=== PATIENT | male | born 1945 | race Caucasian/White ===

== ENCOUNTER 2020-03-03 18:35 | Inpatient (IN) | payer MEDICARE ==
[~2020-03-03] VITALS: Ht 167.6 cm; Wt 84.7 kg
[~2020-03-03 18:35] MED LIST: ASPI-886 PO; CLOP75TA PO; CRESTOR40 MG PO; DOCU50LI PO; DONE10TA7 PO; ISOS60TA2 PO; LEVO25TA4 PO; MELA3TAB4 PO; METF100010 PO; METO50TA6 PO; MIDO2.5T PO; MIRA25TA PO; OMEG1CAP6 PO; RANI150T2 PO; RANO10002 PO; SENN-37 PO; SERT100T PO; TAMS0.4C2 PO
[2020-03-03 19:03] LABS: BASO # 0.1 x10^3/uL (0.0-0.2); BASO % 1 % (0-3); EOS # 0.2 x10^3/uL (0.0-0.7); EOS % 2 % (0-3); HEMATOCRIT 37.7 % (39.0-53.0); HEMOGLOBIN 12.8 g/dL (13.0-17.5); LYMPH # 0.7 x10^3/uL (1.0-4.8); LYMPH % 5 % (24-48); MEAN CORPUSCULAR HEMOGLOBIN 32 pg (25-35); MEAN CORPUSCULAR HGB CONC 34 g/dL (31-37); MEAN CORPUSCULAR VOLUME 96 fL (79-100); MONO # 0.8 x10^3/uL (0.0-1.1); MONO % 7 % (0-9); NEUT % 86 % (31-73); PLATELET COUNT 234 x10^3/uL (140-400); RED BLOOD COUNT 3.95 x10^6/uL (4.30-5.70); RED CELL DISTRIBUTION WIDTH 14.2 % (11.5-14.5); WHITE BLOOD COUNT 12.8 x10^3/uL (4.0-11.0)
[2020-03-03 19:12] LABS: CALCIUM 8.7 mg/dL (8.5-10.1); GFR 32.8; POTASSIUM 4.2 mmol/L (3.5-5.1)
[2020-03-03] MEDS ORDERED: ACETAMINOPHEN 500 MG TABLET PO ONE (19:15)
[2020-03-03 19:17] LABS: ALBUMIN 3.3 g/dL (3.4-5.0); ALBUMIN/GLOBULIN RATIO 0.8 (1.0-1.7); TOTAL BILIRUBIN 0.3 mg/dL (0.2-1.0); TOTAL PROTEIN 7.4 g/dL (6.4-8.2)
--- NOTE | 2020-03-03 19:33 | RAD ---
Exam: Chest one view INDICATION: Cough TECHNIQUE: Frontal view of the chest Comparisons: None FINDINGS: Sternotomy wires are noted. Clips are seen overlying the left heart border. The cardiomediastinal silhouette and pulmonary vessels are within normal limits. Mild patchy airspace disease in the right infrahilar region. Remaining lungs are clear. IMPRESSION: Mild patchy airspace disease in the right infrahilar region may relate to atelectasis versus developing infectious process. Electronically signed by: Jose Luis Moody MD (03/03/2020 7:30 PM) [id number]
[2020-03-03 19:55] LABS: INFLUENZA A PATIENT NEGATIVE (NEGATIVE); INFLUENZA B PATIENT NEGATIVE (NEGATIVE)
--- NOTE | 2020-03-03 20:00 | PHYS DOC ---
Past Medical History Past Medical History: Dementia, Diabetes-Type II, GERD, Hypothyroid Additional Past Medical Histor: sepsis, 2020 Past Surgical History: Appendectomy, Hip Replacement Additional Past Surgical Histo: heart cath with 14 stents, "fatty tumor removed on neck" Smoking Status: Never Smoker Alcohol Use: None General Adult EDM: Chief Complaint: CHEST PAIN HPI: HPI: Patient is a 74 year old male presents to the ED with chief complaint of fever and chest pain. Patient states that the pain is been present on and off for the last 2 days but today started at 6 PM. Patient does state that he is a significant cardiac history and has [address] Patient states that his torpedo specialist is Dr. Snider. EMS state that patient was given aspirin and brought to the ER. Currently patient is not on any oxygen and denies shortness of breath. Patient states that he had a COVID test done 3 weeks ago which was negative. Review of Systems: Review of Systems: Constitutional: Complains of fever [] Eyes: Denies change in visual acuity. [] HENT: Denies nasal congestion or sore throat. [] Respiratory: Denies cough or shortness of breath. [] Cardiovascular: Complains of chest pain [] GI: Denies abdominal pain, nausea, vomiting, bloody stools or diarrhea. [] : Denies dysuria. [] Musculoskeletal: Denies back pain or joint pain. [] Integument: Denies rash. [] Neurologic: Denies headache, focal weakness or sensory changes. [] Heart Score: Risk Factors: Risk Factors: DM, Current or recent (<one month) smoker, HTN, HLP, family history of CAD, obesity. Risk Scores: Score 0 - 3: 2.5% MACE over next 6 weeks - Discharge Home Score 4 - 6: 20.3% MACE over next 6 weeks - Admit for Clinical Observation Score 7 - 10: 72.7% MACE over next 6 weeks - Early Invasive Strategies Current Medications: Current Medications Medications (Trade) Dose Ordered Sig/Chaya Start Time Stop Time Status Last Admin Dose Admin Acetaminophen (Tylenol) 1,000 mg 1X ONCE 03/03/20 19:15 03/03/20 19:18 DC 03/03/20 19:22 1,000 MG Allergies: Allergies: Allergies Coded Allergies Type Severity Reaction Last Updated Verified Iodinated Contrast Media Allergy Unknown 06/24/18 Yes niacin Allergy Unknown Unknown 06/24/18 Yes Physical Exam: PE: Constitutional: Well developed, well nourished, no acute distress, non-toxic appearance. [] HENT: Normocephalic, atraumatic Eyes: EOMI Neck: Normal range of motion, Supple Cardiovascular:Heart rate regular rhythm Lungs & Thorax: Bilateral rhonchi [] Abdomen: Bowel sounds normal, soft, no tenderness Extremities: No tenderness, ROM intact Neurologic: Alert and oriented X 3 Current Patient Data: Labs: Laboratory Tests Test 03/03/20 18:53 03/03/20 19:25 White Blood Count 12.8 x10^3/uL (4.0-11.0) H Red Blood Count 3.95 x10^6/uL (4.30-5.70) L Hemoglobin 12.8 g/dL (13.0-17.5) L Hematocrit 37.7 % (39.0-53.0) L Mean Corpuscular Volume 96 fL (79-100) Mean Corpuscular Hemoglobin 32 pg (25-35) Mean Corpuscular Hemoglobin Concent 34 g/dL (31-37) Red Cell Distribution Width 14.2 % (11.5-14.5) Platelet Count 234 x10^3/uL (140-400) Neutrophils (%) (Auto) 86 % (31-73) H Lymphocytes (%) (Auto) 5 % (24-48) L Monocytes (%) (Auto) 7 % (0-9) Eosinophils (%) (Auto) 2 % (0-3) Basophils (%) (Auto) 1 % (0-3) Neutrophils # (Auto) 11.0 x10^3/uL (1.8-7.7) H Lymphocytes # (Auto) 0.7 x10^3/uL (1.0-4.8) L Monocytes # (Auto) 0.8 x10^3/uL (0.0-1.1) Eosinophils # (Auto) 0.2 x10^3/uL (0.0-0.7) Basophils # (Auto) 0.1 x10^3/uL (0.0-0.2) Platelet Estimate Pending Sodium Level 138 mmol/L (136-145) Potassium Level 4.2 mmol/L (3.5-5.1) Chloride Level 103 mmol/L (98-107) Carbon Dioxide Level 27 mmol/L (21-32) Anion Gap 8 (6-14) Blood Urea Nitrogen 24 mg/dL (8-26) Creatinine 2.0 mg/dL (0.7-1.3) H Estimated GFR (Cockcroft-Gault) 32.8 BUN/Creatinine Ratio 12 (6-20) Glucose Level 137 mg/dL (70-99) H Lactic Acid Level 1.0 mmol/L (0.4-2.0) Calcium Level 8.7 mg/dL (8.5-10.1) Total Bilirubin 0.3 mg/dL (0.2-1.0) Aspartate Amino Transferase (AST) 22 U/L (15-37) Alanine Aminotransferase (ALT) 33 U/L (16-63) Alkaline Phosphatase 85 U/L (46-116) Troponin I Quantitative < 0.017 ng/mL (0.000-0.055) UN-Yjm-G-Type Natriuretic Peptide 627 pg/mL (0-124) H Total Protein 7.4 g/dL (6.4-8.2) Albumin 3.3 g/dL (3.4-5.0) L Albumin/Globulin Ratio 0.8 (1.0-1.7) L Procalcitonin < 0.10 ng/mL (0.00-0.10) Influenza Type A Antigen Negative (NEGATIVE) Influenza Type B Antigen Negative (NEGATIVE) Laboratory Tests 03/03/20 18:53 Laboratory Tests 03/03/20 18:53 Vital Signs: Vital Signs Date Time Temp Pulse Resp B/P (MAP) Pulse Ox O2 Delivery O2 Flow Rate FiO2 03/03/20 18:45 100.0 102 24 136/73 (94) 98 Room Air 100.0 EKG: EKG: EKG interpretation: 18: 45 on 03/03/2020 HR: 97 Sinus rhythm Regular intervals Normal axis Nonspecific ST changes Radiology/Procedures: Radiology/Procedures: [] Impression: CXR IMPRESSION: Mild patchy airspace disease in the right infrahilar region may relate to atelectasis versus developing infectious process. Course & Med Decision Making: Course & Med Decision Making Pertinent Labs and Imaging studies reviewed. (See chart for details) Order chest x-ray, EKG, troponin, labs Chest x-ray shows possible perihilar infiltrate in the right lower lobe. EKG does not show any acute changes. Troponin is negative. Labs are within normal limits. Patient is given IV Rocephin and Zithromax in the ER. Patient is also given Tylenol 1000 mg. Patient is currently on room air and has good oxygenation. Due to patient's cardiac history and fever, I will order COVID testing again. Discussed results and plan of care with patient. Patient will be admitted for further evaluation and treatment. I discussed case with Dr. Devine who accepted patient's admission. Dragon Disclaimer: Dragon Disclaimer: This electronic medical record was generated, in whole or in part, using a voice recognition dictation system. Departure Departure Impression: Primary Impression: Chest pain Additional Impressions: Pneumonia Exposure to COVID-19 virus Disposition: ADMITTED INPATIENT Admitting Physician: Madi. Magallanes Condition: GOOD Referrals: CARY DEVINE MD (PCP) Justicifation of Admission Dx: Justifications for Admission: Justification of Admission Dx: Yes Comments: Chest pain Pneumonia IRVIN DOYLE DO Mar 03, 2020 20:00
[2020-03-03 20:01] LABS: % BANDS 12 % (0-9); % EOS 1 % (0-5); % LYMPHS 5 % (24-48); % MONOS 4 % (0-10); % SEGS 78 % (35-66)
[2020-03-03 20:02] LABS: PLT ESTIMATE ADEQUATE (ADEQUATE)
[2020-03-03] MEDS ORDERED: cefTRIAXone IV Push 1 GM VIAL. IVP ONE (20:30)
[2020-03-03] MEDS ORDERED: AZITHROMYCIN 250 MG TABLET. PO ONE (20:30)
[2020-03-03 21:30] VITALS: BP 132/67
--- NOTE | 2020-03-03 21:30 | NUR ---
ADMISSION NOTE Pt admitted to room 672 from ER via cart. Pt ambulated with assist to bed. Pt is pleasant, A/Ox4, but forgetful with details. POC discussed, admission history and assessment completed. Pt states some feeling of SOA, but no chest pain at this time. Does c/o headache and right jaw ache. Pt on tele monitor. Pt cell phone, director of enterprise architecture and glasses at bedside. Pt denies any needs. Pts daughter, Rita, called regarding pt status. Update given over the phone with pt permission. Call light in reach and explained to pt. Pt vu to call when need OOB. Bed alarm on. Will monitor.
[2020-03-03] MEDS ORDERED: INSU100I17 SQ (21:53)
[2020-03-03] MEDS ORDERED: LEVO75TA5 PO (21:53)
[2020-03-03] MEDS ORDERED: INSU100V13 SQ (21:53)
[2020-03-03] MEDS ORDERED: FAMO20TA5 PO (21:53)
[2020-03-03] MEDS ORDERED: MIRA50TA PO (21:53)
[2020-03-03] MEDS: INSULIN GLARGINE SYRINGE. SQ SCH (22:45)
[2020-03-03] MEDS ORDERED: C.DIFF MED SCREEN BY RX. MC ONE (22:45)
[2020-03-03 23:00] VITALS: BP 128/64
[2020-03-03] MEDS: ACETAMINOPHEN 325 MG TABLET. PO PRN (23:11)
[2020-03-04 03:00] VITALS: BP 113/55
--- NOTE | 2020-03-04 04:15 | NUR ---
NURSING NOTE At 0230, pt called out, he had large loose, liquid incontinent BM in bed. When previously asked on assessment, pt stated last BM was 2 days ago. Now pt states he has diarrhea intermittently at home. At 0300, pt assisted to the bathroom, where he had another liquid BM. Then at 414, pt called to use bathroom again, pt had another large incontinent BM in brief, and more in the toilet. Cdiff sample obtained and sent to lab. Pt assisted back to bed. Call light in reach. Will monitor.
[2020-03-04 07:00] VITALS: BP 105/68
[2020-03-04 07:15] LABS: BASO % 0 % (0-3); EOS % 0 % (0-3); HEMATOCRIT 39.6 % (39.0-53.0); HEMOGLOBIN 13.2 g/dL (13.0-17.5); LYMPH % 7 % (24-48); MEAN CORPUSCULAR HEMOGLOBIN 32 pg (25-35); MEAN CORPUSCULAR HGB CONC 33 g/dL (31-37); MEAN CORPUSCULAR VOLUME 95 fL (79-100); MONO % 7 % (0-9); NEUT # 12.8 x10^3/uL (1.8-7.7); NEUT % 86 % (31-73); PLATELET COUNT 226 x10^3/uL (140-400); RED BLOOD COUNT 4.16 x10^6/uL (4.30-5.70); RED CELL DISTRIBUTION WIDTH 14.1 % (11.5-14.5); WHITE BLOOD COUNT 14.8 x10^3/uL (4.0-11.0)
[2020-03-04 07:28] LABS: ALBUMIN 3.1 g/dL (3.4-5.0); ALBUMIN/GLOBULIN RATIO 0.9 (1.0-1.7); CALCIUM 8.3 mg/dL (8.5-10.1); CHOLESTEROL/HDL RATIO 2.2; CREATININE 1.9 mg/dL (0.7-1.3); GFR 34.8; POTASSIUM 4.2 mmol/L (3.5-5.1); TOTAL BILIRUBIN 0.5 mg/dL (0.2-1.0); TOTAL PROTEIN 6.7 g/dL (6.4-8.2)
[2020-03-04] MEDS ORDERED: FAMOTIDINE 20 MG TABLET. PO SCH (10:00)
[2020-03-04] MEDS: DONEPEZIL HCL 10 MG TABLET. PO SCH (10:00)
--- NOTE | 2020-03-04 10:08 | HP ---
ADMIT DATE: HISTORY OF PRESENT ILLNESS: The patient is a 74-year-old male patient who presented to the Emergency Room with chief complaint of fever and chest pain. He stated the pain has been on and off for the last 2 days; however, the day of admission, started around 6:00 p.m. He does have significant cardiac history or DVT. He stated that he describes the pain as discomfort. He was given aspirin by the EMS and was brought to the Emergency Room for further evaluation. The patient stated that he was admitted to the [facility] about 3 weeks ago, was tested for coronavirus 3 times were negative. He was treated for sepsis and he finished antibiotic only 2 days ago. He was extensively evaluated in the Emergency Room and has had an EKG, which showed that he was in sinus rhythm with a heart rate of [address] segment elevation or depression. His chest x-ray showed mild patchy airspace disease in the right infrahilar region, may relate to atelectasis versus developing infectious process. His lab work showed a white cell count 12,800, hemoglobin 13, hematocrit 37, MCV was 96, and platelet count of 234,000. His chemistry showed that his BUN was 24 and creatinine was 2. The patient was admitted to rule out myocardial infarction. He was also started on ceftriaxone and Zithromax for possible community-acquired pneumonia. PAST MEDICAL HISTORY: Significant for coronary artery disease, congestive heart failure, hypertension, myocardial infarction, hyperlipidemia, obstructive sleep apnea, cerebrovascular accident, peripheral neuropathy, dementia, gastroesophageal reflux disease, depression, osteoarthritis, benign prostatic hypertrophy and urinary incontinence. He is also known to have type 2 diabetes mellitus and hypothyroidism. PAST SURGICAL HISTORY: Significant for appendectomy, coronary artery bypass graft surgery and right total hip arthroplasty as well as multiple stent deployment. FAMILY HISTORY: Positive for coronary artery disease. SOCIAL HISTORY: He lives alone with his cat. He has a son and a daughter. His daughter is his DPOA and she keeps an eye on him. He does not smoke, drink alcohol or use any recreational drugs. REVIEW OF SYSTEMS: The patient denied any blurring of vision, cataract, glaucoma or macular degeneration. Denied any earache, tinnitus or sensorineural deafness. Denied any nosebleeds, stuffy nose or postnasal drip. Denied any sore throat, sore tongue, toothache, hoarseness of voice or difficulty swallowing. He denied any nausea, vomiting, diarrhea or constipation. Denied any hematemesis, melena or hematochezia. Denied any dysuria, frequency or hematuria. Did complain of chest discomfort and shortness of breath, but denied any orthopnea or paroxysmal nocturnal dyspnea. Did complain of fever and shaking chills. Also complained of cough with whitish to yellowish sputum. PHYSICAL EXAMINATION: GENERAL: On arrival to the Emergency Room, he was pale but no jaundice or cyanosis. No lymphadenopathy. No thyromegaly. No jugular venous distention. Mild bilateral limb edema. VITAL SIGNS: His heart rate was 102, blood pressure was 136/73, temperature was 100, respiratory rate was 24 and oxygen saturation was 98% on room air. HEAD, EYES, EARS, NOSE AND THROAT: Showed normocephalic, atraumatic. NECK: Supple. CARDIAC: Normal first and second heart sounds. No gallop, rub or murmur. CHEST: Shows central trachea, equal bilateral expansion, air entry, vesicular sounds. I could not really appreciate any crepitation or rhonchi. ABDOMEN: Distended, soft, nontender. NEUROLOGIC: He was awake and alert, responding appropriately. All cranial nerves intact. EXTREMITIES: He moves extremities without difficulty, ambulates without assistance or assistive devices. LABORATORY DATA: His CBC showed a white cell count 12,800, hemoglobin 12.8, hematocrit 38, MCV 96 and platelet count 234,000 with normal manual differential. His chemistry showed that his serum sodium was 138, potassium 4.2, chloride 103, bicarbonate 27, anion gap of 8, BUN 24, creatinine 2 and estimated GFR was 32 mL per minute. His glucose was 137. Lactic acid is only 1. Calcium was 8.7. Total bilirubin, AST, ALT and alkaline phosphatase were normal. Total protein was 7.4. Albumin was 3.3. His procalcitonin was less than 1. His influenza A and B were negative. ASSESSMENT AND PLAN: The patient was admitted with community-acquired pneumonia and was started on Rocephin and Zithromax. He has also chest pain for which he has had a first set of cardiac enzymes showed troponin to be less than 0.017. We will basically check his COVID-19 and also check 2 more sets of cardiac enzyme and reconciled all his other medications. CARY CHIN MD DR: CHRIS/francois JOB#: [id number] / [id number]
[2020-03-04] MEDS: VANCOMYCIN 125 MG/2.5 ML ORAL SOLUTION. PO SCH ×4 (10:13→21:36)
[2020-03-04] MEDS: LACTOBACILLUS RHAMNOSUS GG 1 CAPSULE. PO SCH ×2 (10:13→21:21)
[2020-03-04] MEDS: MIDODRINE 2.5 MG TABLET PO SCH ×2 (10:13→21:22)
[2020-03-04] MEDS: SERTRALINE 50 MG TABLET. PO SCH (10:13)
[2020-03-04] MEDS: METOPROLOL TART IMMED RELEASE 25 MG TABLET. PO SCH ×2 (10:14→21:21)
[2020-03-04] MEDS: IV NORMAL SALINE 1000ML BAG 1,000 ML IV SCH ×2 (10:15→23:12)
[2020-03-04] MEDS: LEVOTHYROXINE 75 MCG TABLET PO SCH (10:15)
[2020-03-04 11:00] VITALS: BP 111/42
--- NOTE | 2020-03-04 11:17 | NUR ---
Pharmacy Medication Review S: Consulted for medication review re: C.diff Risk Assessment score of 6 O: ABNER VERAS is a 74 year old with: Previous C.diff infection: No Previous hospitalization: Within 30 days Recent antibiotics: Within 30 days Use of gastric acid suppressor: Yes Transfer from [place]/LTAC: No Current antibiotic regimen: AZITH/CEFTRIAXONE Current acid suppression regimen: FAMOTIDINE A: Patient has been identified as having risk factors for C.diff infection as noted above. P: ABX DE-ESCALATION RECOMMENDED: NO, PT HAS CAP PROBIOTIC ORDERED: YES PPI CHANGED TO [id number]: PT ON H2RA KENDALL PAPPAS [facility], 03/04/20 [id number]
[2020-03-04] MEDS: INSULIN LISPRO 300 UNITS/3 ML VIAL. SQ SCH ×2 (12:22→17:00)
--- NOTE | 2020-03-04 13:48 | PN ---
DATE: 03/04/2020 SUBJECTIVE: The patient is sitting at the edge of the bed comfortably, in no apparent distress. He continues to complain of cough with yellowish to whitish sputum. He continued to have also fever and had about 6 episodes of loose bowel movement this morning. His blood pressure is also on the low side. PHYSICAL EXAMINATION: GENERAL: When I examined him, he looked pale. No jaundice or cyanosis. No lymphadenopathy. No thyromegaly. No jugular venous distention. Mild bilateral lower limb edema. VITAL SIGNS: His heart rate was 108, blood pressure was 113/55, temperature was 100.1, respiratory rate was 28 and oxygen saturation was 96%. HEAD, EYES, EARS, NOSE and THROAT: Showed normocephalic, atraumatic. NECK: Supple. HEART: Showed normal first and second heart sounds. No gallop, rub or murmur. CHEST: Clear to auscultation. No crepitation or rhonchi. ABDOMEN: Distended, soft, nontender. NEUROLOGIC: He was awake, alert, responding appropriately. LABORATORY DATA: Showed a serum sodium 137, potassium 4.2, chloride 103, bicarbonate 25, anion gap of 9, BUN 23, creatinine was 1.9. His estimated GFR was 55 and glucose was 196. Calcium was 8.3. Total bilirubin, AST, ALT, alkaline phosphatase were normal. Total protein was 6.7, albumin 3.1. Serum triglycerides 167, total cholesterol 89, LDL cholesterol was 15, VLDL was 55, HDL cholesterol was 41, ratio 2.2. Has 3 sets of cardiac enzymes, which showed troponin to be less than 0.017. ASSESSMENT: In summary, this is a 74-year-old male patient who was admitted with fever, chills. He has had cough with whitish to yellowish sputum. His chest x-ray showed that he has sternotomy wires that are noted. Clips are seen overlying the left heart border. Cardiomediastinal silhouette and pulmonary vessels are within normal limits. Mild patchy airspace disease in the right infrahilar region. Remaining lungs are clear. He was admitted with chest discomfort. He has 3 sets of cardiac enzymes that ruled out myocardial infarction. He has also community acquired pneumonia, for which he is now on IV Rocephin and Zithromax. He apparently was at [facility] for sepsis and treated with IV antibiotic and eventually switched to oral and completed his antibiotics only 2 days ago. He is now having recurrent episodes of loose bowel movement. He has had 6 bowel movements so far. The stool was sent for C. diff. PLAN: My plan is to start him on IV fluid for gentle rehydration as he is feeling dizzy. I will start him on normal saline at 75 mL per hour. His stool for C. diff was sent and I will start him empirically on oral vancomycin and obviously will continue with that if the C. diff is positive. CARY CHIN MD DR: CHRIS/francois JOB#: [id number] / [id number]
[2020-03-04 15:00] VITALS: BP 113/59
[2020-03-04] MEDS: ACETAMINOPHEN 325 MG TABLET. PO PRN (16:10)
[2020-03-04 20:02] VITALS: BP 111/58
[2020-03-04] MEDS ORDERED: INSULIN DETEMIR 15 UNIT SQ SCH (21:00)
[2020-03-04] MEDS ORDERED: cefTRIAXone IV Push 1 GM VIAL. IVP SCH (21:00)
[2020-03-04] MEDS ORDERED: AZITHROMYCIN 500 MG in IV NORMAL SALINE 250ML 250 ML IV SCH (21:00)
[2020-03-04] MEDS: TAMSULOSIN 0.4 MG CAP.ER.24H. PO SCH (21:22)
[2020-03-04] MEDS: ATORVASTATIN CALCIUM 40 MG TABLET. PO SCH (21:22)
[2020-03-04] MEDS: INSULIN GLARGINE SYRINGE. SQ SCH (21:38)
[2020-03-04 23:09] VITALS: BP 103/54
[2020-03-05 04:00] VITALS: BP 98/56
[2020-03-05 05:39] LABS: HEMATOCRIT 33.5 % (39.0-53.0); HEMOGLOBIN 11.4 g/dL (13.0-17.5); RED BLOOD COUNT 3.49 x10^6/uL (4.30-5.70); RED CELL DISTRIBUTION WIDTH 14.4 % (11.5-14.5); WHITE BLOOD COUNT 9.5 x10^3/uL (4.0-11.0)
[2020-03-05 05:48] LABS: ALBUMIN 2.5 g/dL (3.4-5.0); ALBUMIN/GLOBULIN RATIO 0.7 (1.0-1.7); CALCIUM 8.2 mg/dL (8.5-10.1); CREATININE 1.8 mg/dL (0.7-1.3); GFR 37.1; POTASSIUM 3.6 mmol/L (3.5-5.1); TOTAL BILIRUBIN 0.3 mg/dL (0.2-1.0); TOTAL PROTEIN 6.3 g/dL (6.4-8.2)
[2020-03-05 07:30] VITALS: BP 106/55
[2020-03-05] MEDS: MIDODRINE 2.5 MG TABLET PO SCH ×2 (08:23→22:17)
[2020-03-05] MEDS: LEVOTHYROXINE 75 MCG TABLET PO SCH (08:23)
[2020-03-05] MEDS: DONEPEZIL HCL 10 MG TABLET. PO SCH (08:23)
[2020-03-05] MEDS: SERTRALINE 50 MG TABLET. PO SCH (08:23)
[2020-03-05] MEDS: LACTOBACILLUS RHAMNOSUS GG 1 CAPSULE. PO SCH ×2 (08:23→22:17)
[2020-03-05] MEDS: FAMOTIDINE 20 MG TABLET. PO SCH (08:23)
[2020-03-05] MEDS: NON FORMULARY ITEM (Mirabegron (Myrbetriq) 50 MG) PO SCH (08:24)
[2020-03-05] MEDS: METOPROLOL TART IMMED RELEASE 25 MG TABLET. PO SCH ×2 (08:24→22:17)
[2020-03-05] MEDS: VANCOMYCIN 125 MG/2.5 ML ORAL SOLUTION. PO SCH ×4 (08:24→21:00)
[2020-03-05] MEDS: INSULIN LISPRO 300 UNITS/3 ML VIAL. SQ SCH ×3 (08:27→17:00)
--- NOTE | 2020-03-05 09:53 | PN ---
DATE: 03/05/2020 SUBJECTIVE: The patient is resting, slightly propped up in bed, in no apparent respiratory distress. He is awake, alert. On questioning him, he continued to have abdominal discomfort and recurrent bouts of diarrhea. He has about 4 last night and 2 this morning. He did complain of chest discomfort when he coughs. His stool for C. diff toxins was positive. The COVID-19 test is still pending at the time of this dictation. PHYSICAL EXAMINATION: GENERAL: When I saw him, he looked well and was clearly in no apparent respiratory distress. No pallor, jaundice, cyanosis or thyromegaly. No jugular venous distention. No lower limb edema. VITAL SIGNS: His heart rate was 74, blood pressure was 106/55, temperature 97.3, respiratory rate was 16, and oxygen saturation was 98% on room air. HEAD, EYES, EARS, NOSE AND THROAT: Showed he is normocephalic, atraumatic. NECK: Supple. CARDIAC: Normal first and second heart sounds. No gallop, rub or murmur. CHEST: Shows central trachea, equal bilateral expansion, air entry. I really could not appreciate any crepitation or rhonchi. ABDOMEN: Distended, diffusely tender. No guarding or rigidity. No organomegaly. All hernial orifices intact. Bowel sounds normal. NEUROLOGIC: He is awake, alert, responding appropriately. All cranial nerves are intact. He moves extremities without difficulty. His intake and output were incompletely recorded. LABORATORY DATA: His lab work this morning showed a white cell count 9500, hemoglobin 11.4, hematocrit 33, MCV 96, and platelet count of 172,000. His chemistry showed a serum sodium 140, potassium 3.6, chloride 107, bicarbonate 24, anion gap of 9, BUN 25, creatinine 1.8, estimated GFR was 37. Blood sugar was 135, calcium was 8.2. Total bilirubin, AST, ALT, alkaline phosphatase were normal. Total protein 6.3, albumin 2.5. ASSESSMENT: 1. Recurrent bouts of diarrhea with stool positive for Clostridium difficile colitis for which he is now on oral vancomycin as well as lactobacillus rhamnosus. 2. Community-acquired pneumonia for which he is on Rocephin and Zithromax. 3. The patient was apparently admitted with sepsis and was at the [facility] and completed antibiotic only 2 days prior to admission. 4. The patient has multiple other medical problems including: A. Coronary artery disease, status post bypass graft surgery. He has congestive heart failure, hypertension, hyperlipidemia, obstructive sleep apnea, benign prostatic hypertrophy, hypothyroidism, type 2 diabetes. PLAN: To continue with current plan of management. I will consult Infectious Disease to see whether to assist with his management. CARY CHIN MD DR: CHRIS/francois JOB#: [id number] / [id number]
[2020-03-05 11:20] VITALS: BP 122/61
[2020-03-05] MEDS: IV NORMAL SALINE 1000ML BAG 1,000 ML IV SCH (12:00)
--- NOTE | 2020-03-05 13:17 | PDOC ---
Infectious Disease Note Vital Sign Vital Signs Vital Signs Date Time Temp Pulse Resp B/P (MAP) Pulse Ox O2 Delivery O2 Flow Rate FiO2 03/05/20 11:20 97.0 74 16 122/61 (81) 98 Room Air 97.0 Labs Lab Laboratory Tests Test 03/04/20 17:15 03/04/20 21:45 03/05/20 05:00 03/05/20 07:43 Glucose (Fingerstick) 106 mg/dL (70-99) 155 mg/dL (70-99) 148 mg/dL (70-99) White Blood Count 9.5 x10^3/uL (4.0-11.0) Red Blood Count 3.49 x10^6/uL (4.30-5.70) Hemoglobin 11.4 g/dL (13.0-17.5) Hematocrit 33.5 % (39.0-53.0) Mean Corpuscular Volume 96 fL (79-100) Mean Corpuscular Hemoglobin 33 pg (25-35) Mean Corpuscular Hemoglobin Concent 34 g/dL (31-37) Red Cell Distribution Width 14.4 % (11.5-14.5) Platelet Count 172 x10^3/uL (140-400) Sodium Level 140 mmol/L (136-145) Potassium Level 3.6 mmol/L (3.5-5.1) Chloride Level 107 mmol/L (98-107) Carbon Dioxide Level 24 mmol/L (21-32) Anion Gap 9 (6-14) Blood Urea Nitrogen 25 mg/dL (8-26) Creatinine 1.8 mg/dL (0.7-1.3) Estimated GFR (Cockcroft-Gault) 37.1 BUN/Creatinine Ratio 14 (6-20) Glucose Level 135 mg/dL (70-99) Calcium Level 8.2 mg/dL (8.5-10.1) Total Bilirubin 0.3 mg/dL (0.2-1.0) Aspartate Amino Transf (AST/SGOT) 19 U/L (15-37) Alanine Aminotransferase (ALT/SGPT) 15 U/L (16-63) Alkaline Phosphatase 60 U/L (46-116) Total Protein 6.3 g/dL (6.4-8.2) Albumin 2.5 g/dL (3.4-5.0) Albumin/Globulin Ratio 0.7 (1.0-1.7) Test 03/05/20 11:21 Glucose (Fingerstick) 135 mg/dL (70-99) Micro Microbiology 03/03/20 Blood Culture - Preliminary, Resulted NO GROWTH AFTER 1 DAY Objective Assessment C. difficile colitis, 03/04 Mild patchy airspace disease in the right infrahilar region, atelectasis versus developing infectious process. Fever - better Leukocytosis CAD Recent h/o UTI-Tx [id number] Cat scratch -abdomen area HTN Benign prostatic hypertrophy T2DM Plan Plan of Care continue po vancomycin d/c Rocephin and azithromycin Repeat chest x-ray in am. Maintain hydration f/u UA and cultures Monitor labs/temp Contact isolation for C. diff. Airborne isolation till COVID-19 ruled out D/w Dr. Mcguire D/w nursing Thank you [id number] Patient discussed with BINDING MACHINE OPERATOR. Chart reviewed in detail. Above plan co-formulated and agreed upon with BINDING MACHINE OPERATOR on 03/05/2020. BOYD GARRETT APRN Mar 05, 2020 13:17 KENZIE MCGUIRE MD Mar 05, 2020 20:02
[2020-03-05 14:10] VITALS: BP 115/74
--- NOTE | 2020-03-05 18:13 | CONS ---
DATE OF CONSULTATION: 03/05/2020 REFERRING PHYSICIAN: Dr. Devine. REASON FOR CONSULTATION: Clostridium difficile colitis and questionable community-acquired pneumonia. HISTORY OF PRESENT ILLNESS: This patient is a 74-year-old male with a past medical history of coronary artery disease, who presented with a 2-day history of chest pain and fever with leukocytosis. He tested negative for influenza. COVID-19 pending. A chest x-ray showed mild patchy airspace disease in the right infrahilar region may relate to atelectasis versus developing infectious process. He was started on Rocephin and azithromycin. The patient says his chest feels more sore than anything. He has a cough with white phlegm production. He denies shortness of air and is satting 99% on room air. Since admission, he has developed diarrhea, mild abdominal cramps and bloating. He has had 15 stools within the last 24 hours. He tested positive for Clostridium difficile. He is now on oral vancomycin and placed in contact isolation. He denies loss of appetite, nausea, or vomiting. He was recently admitted to the [facility] a couple of weeks ago for sepsis and recurrent urinary tract infection. He finished antibiotics 2 days prior to this admission. He lives at home with a therapy cat. About a week ago, the cat scratched him in the abdomen. He denies dysuria, frequency, or urgency. PAST MEDICAL HISTORY: Coronary artery disease, history of CVA, dementia, myocardial infarction, congestive heart failure, cardiomyopathy, hyperlipidemia, GERD, recurrent urinary tract infections, benign prostate hypertrophy, diabetes, depression, anemia, osteoarthritis, peripheral neuropathy, hypothyroidism, and obstructive sleep apnea. PAST SURGICAL HISTORY: Coronary artery bypass graft, right hip replacement, appendectomy, coronary stents, cataract surgery. FAMILY HISTORY: Positive for coronary artery disease. SOCIAL HISTORY: The patient lives at home. He has a therapy cat. He has a son and daughter. He does not smoke. He is a [place] . ALLERGIES: CONTRAST DYE AND NIACIN. MEDICATIONS: Reviewed on the OCT and includes azithromycin, Rocephin, probiotics, oral vancomycin. REVIEW OF SYSTEMS: Per HPI, otherwise all other review of systems are negative. PHYSICAL EXAMINATION: VITAL SIGNS: Temperature 97.0, blood pressure 122/61, heart rate 74, respiratory rate 16, pulse oximetry 98% on room air. BMI 29. GENERAL: The patient is propped up in bed, alert and smiling. HEENT: Post-cataract surgery. Oropharynx pink and moist. No thrush. NECK: Supple. LUNGS: Clear to auscultation No accessory muscle use. CARDIAC: S1 and S2. ABDOMEN: Mildly distended, soft, nontender, bowel sounds present No guarding. EXTREMITIES: No gross edema or cyanosis. SKIN: Warm to touch. No signs of rash. NEUROLOGIC: Alert and oriented, but a little forgetful. LABORATORY DATA: Today's WBC 9.5 from 14.8, hemoglobin 11.4, platelets 172,000. Sodium 140, potassium 3.6, creatinine 1.8 from 2.0 on admission. Glucose 135. Lactic acid 1.0, total bilirubin 0.3, AST 19, ALT 15, albumin is 2.5. Procalcitonin less than 0.10. Clostridium difficile PCR positive on 03/04/2020. Influenza negative. COVID-19 pending. Chest x-ray per HPI. Blood cultures from 03/03/2020 negative to date. Urinalysis is pending. IMPRESSION: 1. Clostridium difficile colitis from 03/04/2020. 2. Mild patchy airspace disease in the right infrahilar region, atelectasis versus developing infectious process. 3. Fever. 4. Leukocytosis. 5. Coronary artery disease. 6. Recent history of urinary tract infection, which apparently has been treated. 7. Cat scratch on abdominal area. 8. Hypertension. 9. Benign prostate hypertrophy. 10. Type 2 diabetes mellitus. PLAN: 1. Continue the oral vancomycin. 2. Maintain hydration. 3. Contact isolation for Clostridium difficile. 4. Discontinue the Rocephin and azithromycin. 5. Repeat chest x-ray in the morning. 6. Airborne precautions until COVID-19 ruled out. 7. Discussed with nursing. Thank you, Dr. Devine for asking us to participate in this patient's care. Should you have further questions or concerns, please call. KENZIE RUIZ MD DR: RATNA/francois JOB#: [id number] / [id number]
[2020-03-05 19:10] VITALS: BP 126/57
[2020-03-05] MEDS: ATORVASTATIN CALCIUM 40 MG TABLET. PO SCH (21:00)
[2020-03-05] MEDS: TAMSULOSIN 0.4 MG CAP.ER.24H. PO SCH (22:17)
[2020-03-05] MEDS: INSULIN GLARGINE SYRINGE. SQ SCH (22:19)
[2020-03-06] VITALS (7 sets, daily range): BP systolic 120–165; BP diastolic 58–79
[2020-03-06] MEDS: IV NORMAL SALINE 1000ML BAG 1,000 ML IV SCH ×2 (01:45→15:05)
[2020-03-06] MEDS: VANCOMYCIN 125 MG/2.5 ML ORAL SOLUTION. PO SCH ×4 (08:53→20:48)
[2020-03-06] MEDS: INSULIN LISPRO 300 UNITS/3 ML VIAL. SQ SCH ×3 (08:57→17:15)
[2020-03-06] MEDS: FAMOTIDINE 20 MG TABLET. PO SCH (08:57)
[2020-03-06] MEDS: DONEPEZIL HCL 10 MG TABLET. PO SCH (08:58)
[2020-03-06] MEDS: LACTOBACILLUS RHAMNOSUS GG 1 CAPSULE. PO SCH ×2 (08:58→20:48)
[2020-03-06] MEDS: METOPROLOL TART IMMED RELEASE 25 MG TABLET. PO SCH ×2 (08:58→20:48)
[2020-03-06] MEDS: SERTRALINE 50 MG TABLET. PO SCH (08:58)
[2020-03-06] MEDS: LEVOTHYROXINE 75 MCG TABLET PO SCH (08:59)
[2020-03-06] MEDS: NON FORMULARY ITEM (Mirabegron (Myrbetriq) 50 MG) PO SCH (09:00)
[2020-03-06] MEDS: MIDODRINE 2.5 MG TABLET PO SCH ×2 (09:00→20:48)
--- NOTE | 2020-03-06 09:02 | PDOC ---
Infectious Disease Note Vital Sign Vital Signs Vital Signs Date Time Temp Pulse Resp B/P (MAP) Pulse Ox O2 Delivery O2 Flow Rate FiO2 03/06/20 08:58 73 146/78 03/06/20 07:00 97.0 22 95 Room Air 97.0 03/05/20 19:10 98.0 Physical Exam PHYSICAL EXAM GENERAL: The patient is propped up in bed, alert and smiling. HEENT: Post-cataract surgery. Oropharynx pink and moist. No thrush. NECK: Supple. LUNGS: Clear to auscultation No accessory muscle use. CARDIAC: S1 and S2. ABDOMEN: Mildly distended, soft, nontender, bowel sounds present No guarding. EXTREMITIES: No gross edema or cyanosis. SKIN: Warm to touch. No signs of rash. NEUROLOGIC: Alert and oriented, but a little forgetful. Labs Lab Laboratory Tests Test 03/05/20 11:21 03/05/20 17:36 03/05/20 21:49 03/06/20 08:25 Glucose (Fingerstick) 135 mg/dL (70-99) 89 mg/dL (70-99) 164 mg/dL (70-99) 159 mg/dL (70-99) Micro Microbiology 03/03/20 Blood Culture - Preliminary, Resulted NO GROWTH AFTER 2 DAYS Objective Assessment C. difficile colitis, 03/04 Mild patchy airspace disease in the right infrahilar region, atelectasis versus developing infectious process.COVID - neg 03/03 Fever - better Leukocytosis - better CAD Recent h/o UTI-Tx [id number] Cat scratch -abdomen area HTN Benign prostatic hypertrophy T2DM Plan Plan of Care continue po vancomycin d/c Rocephin and azithromycin Repeat chest x-ray in am. Maintain hydration f/u UA and cultures Monitor labs/temp Contact isolation for C. diff. Airborne isolation till COVID-19 ruled out D/w Dr. Mcguire D/w nursing Thank you [id number] Patient discussed with MID LEVEL PRACTITIONER. Chart reviewed in detail. Above plan co-formulated and agreed upon with MID LEVEL PRACTITIONER on 03/05/2020. KENISHA TRINIDAD MD Mar 06, 2020 09:02
--- NOTE | 2020-03-06 16:02 | RAD ---
PORTABLE CHEST 1V 03/06/2020 5:00 AM INDICATION: Chest pain with history of pneumonia COMPARISON: 03/03/2020 TECHNIQUE: Portable frontal view of the chest is provided. FINDINGS: The cardiomediastinal silhouette is within normal limits. Lungs are clear. Median sternotomy changes are present. There are no significant pleural effusions. There is no pulmonary vascular congestion. No pneumothorax. No suspicious osseous abnormality. IMPRESSION: There is no acute cardiopulmonary process. Electronically signed by: Perri Bauer MD (03/06/2020 3:59 PM) PRECIOUS
--- NOTE | 2020-03-06 17:11 | NUR ---
SW following. Reviewed chart and spoke with RN. Pt from home. Pt on room air. Pt seen by Dr. Herrera and IV abx to be discontinued and pt to have oral Vancomycin with repeat chest x-ray in the morning. OT saw this pt and pt at baseline. Pt will likely discharge home tomorrow, 03/07/2020. SW will follow as needed.
--- NOTE | 2020-03-06 20:15 | PN ---
DATE: ROOM: [facility]. SUBJECTIVE: Currently, the patient is lying in bed. He is feeling much better, although he has had 3 loose stools today, one of them he states was fair of an accident and had to be cleaned out, but he is eating some. He denies any fevers, chills, sweats or cough. PHYSICAL EXAMINATION: VITAL SIGNS: Temperature is 97, pulse 80, respirations 20, blood pressure 165/79, satting 95% on room air. GENERAL: He is sitting upright in bed. He looks well. He is in no acute distress. HEENT: Oral cavity, pharynx is clear. NECK: Supple. LUNGS: Clear to auscultation. CARDIOVASCULAR: S1, S2. ABDOMEN: Soft, no guarding, no rebound. EXTREMITIES: Without clubbing, cyanosis or gross edema. SKIN: Warm to touch without signs of rash. NEUROLOGIC: He is alert and answering questions. LABORATORY DATA: From the 5th show white count 9.5, hemoglobin 11.4, platelets 172. Glucose is 156. Chest x-ray is obtained. There is no official report, but I did see it appears clear from my eye. Blood cultures are negative. His COVID negative. ASSESSMENT: 1. Clostridium difficile colitis from the 4th. 2. Mild patchy airspace disease with negative COVID. 3. Fever, better. 4. Leukocytosis, improved. 5. Coronary artery disease. 6. Cat scratch on the abdominal area. This was evaluated, it is three-quarter of an inch, is clean, no signs of infection. 7. Diabetes. RECOMMENDATIONS: We will continue oral vancomycin, maintain hydration and monitor his response. KENISHA TRINIDAD MD DR: TYLER/francois JOB#: [id number] / [id number] NISHA
[2020-03-06] MEDS: ATORVASTATIN CALCIUM 40 MG TABLET. PO SCH (20:48)
[2020-03-06] MEDS: TAMSULOSIN 0.4 MG CAP.ER.24H. PO SCH (20:48)
[2020-03-06] MEDS: INSULIN GLARGINE SYRINGE. SQ SCH (21:37)
--- NOTE | 2020-03-07 01:17 | PN ---
DATE: 03/06/2020 SUBJECTIVE: The patient is resting, slightly propped up in bed, in no apparent respiratory distress. He is awake, alert. On questioning him, he denied any chest pain or shortness of breath. He continued to complain of diarrhea. Denied any nausea or vomiting. Denied any chills, rigors, or fever. Denied any dizziness, lightheadedness, or vertigo. PHYSICAL EXAMINATION: GENERAL: When I examined him, he looked somewhat pale, but no jaundice, cyanosis or thyromegaly. No jugular venous distention. No lower limb edema. VITAL SIGNS: His heart rate was 67, blood pressure was 128/74, temperature 98, respiratory rate 22, and oxygen saturation was 98%. HEAD, EYES, EARS, NOSE AND THROAT: Normocephalic, atraumatic. NECK: Supple. HEART: Showed normal first and second heart sounds. No gallop, rub or murmur. CHEST: Clear to auscultation. No crepitation or rhonchi. ABDOMEN: Mildly distended, soft, nontender. No guarding or rigidity. No organomegaly. All hernial orifice intact. Bowel sounds normal. NEUROLOGIC: He was awake, alert, responding appropriately. All cranial nerves are intact. He moves extremities without difficulty, ambulates without assistance or assistive devices. His intake over the last 24 hours was 1415. No output was recorded. LABORATORY DATA: As of yesterday, his white cell count is down to 9500, hemoglobin 11, hematocrit 33, MCV 96, and platelet count of 172,000. Serum sodium was 140, potassium 3.6, chloride 107, bicarbonate 24, anion gap of 9, BUN 25, creatinine 1.8, estimated GFR was 37 mL per minute. Glucose 135, calcium was 8.2. Total bilirubin, AST, ALT, alkaline phosphatase were normal. Total protein 6.3, albumin 2.5. His stool for C. diff toxin by PCR was positive; however, COVID-19 by PCR not detected. His influenza A and B were negative. ASSESSMENT: 1. Recurrent bouts of diarrhea with stool positive for Clostridium difficile colitis, for which he is now on oral vancomycin, as well as Lactobacillus rhamnosus. 2. He was originally admitted with possible community-acquired pneumonia; however, his Rocephin and Zithromax were discontinued. 3. The patient was apparently admitted with sepsis and was at the [facility], completed antibiotic treatment 22 days prior to admission. 4. The patient has multiple other medical problems including: A. Coronary artery disease, status post bypass graft surgery. B. He has congestive heart failure. C. Hypertension. D. Hyperlipidemia. E. Obstructive sleep apnea. F. Benign prostatic hypertrophy. G. Hypothyroidism. H. Type 2 diabetes mellitus. PLAN: To continue with contact isolation. Continue with p.o. vancomycin. I will repeat all his lab work tomorrow. The input from the Infectious Disease was greatly appreciated. CARY CHIN MD DR: CHRIS/francois JOB#: [id number] / [id number]
[2020-03-07 03:00] VITALS: BP 122/80
[2020-03-07 06:45] LABS: HEMATOCRIT 32.6 % (39.0-53.0); HEMOGLOBIN 11.3 g/dL (13.0-17.5); RED BLOOD COUNT 3.45 x10^6/uL (4.30-5.70); RED CELL DISTRIBUTION WIDTH 14.2 % (11.5-14.5); WHITE BLOOD COUNT 4.2 x10^3/uL (4.0-11.0)
[2020-03-07 07:00] VITALS: BP 120/80
[2020-03-07 07:17] LABS: ALBUMIN 2.6 g/dL (3.4-5.0); ALBUMIN/GLOBULIN RATIO 0.7 (1.0-1.7); CALCIUM 8.1 mg/dL (8.5-10.1); CREATININE 1.5 mg/dL (0.7-1.3); GFR 45.7; POTASSIUM 3.9 mmol/L (3.5-5.1); TOTAL BILIRUBIN 0.3 mg/dL (0.2-1.0); TOTAL PROTEIN 6.4 g/dL (6.4-8.2)
[2020-03-07] MEDS: LEVOTHYROXINE 75 MCG TABLET PO SCH (07:54)
[2020-03-07] MEDS: IV NORMAL SALINE 1000ML BAG 1,000 ML IV SCH ×2 (07:54→21:57)
--- NOTE | 2020-03-07 08:54 | PDOC ---
Infectious Disease Note Subjective Subjective better. No loose stools this am No F/c/s/N/V/SOa/rash or urine problems ROS ROS o/w neg Vital Sign Vital Signs Vital Signs Date Time Temp Pulse Resp B/P (MAP) Pulse Ox O2 Delivery O2 Flow Rate FiO2 03/07/20 08:06 Room Air 03/07/20 07:00 97.6 64 18 120/80 (93) 98 97.6 Physical Exam PHYSICAL EXAM GENERAL: The patient is in a chair, alert and smiling. HEENT: Post-cataract surgery. Oropharynx pink and moist. No thrush. NECK: Supple. LUNGS: Clear to auscultation No accessory muscle use. CARDIAC: S1 and S2. ABDOMEN: soft, nontender, bowel sounds present No guarding. EXTREMITIES: No gross edema or cyanosis. SKIN: Warm to touch. No signs of rash. NEUROLOGIC: Alert and oriented, but a little forgetful. Labs Lab Laboratory Tests Test 03/06/20 12:35 03/06/20 17:06 03/06/20 21:23 03/07/20 06:25 Glucose (Fingerstick) 156 mg/dL (70-99) 117 mg/dL (70-99) 126 mg/dL (70-99) White Blood Count 4.2 x10^3/uL (4.0-11.0) Red Blood Count 3.45 x10^6/uL (4.30-5.70) Hemoglobin 11.3 g/dL (13.0-17.5) Hematocrit 32.6 % (39.0-53.0) Mean Corpuscular Volume 95 fL (79-100) Mean Corpuscular Hemoglobin 33 pg (25-35) Mean Corpuscular Hemoglobin Concent 35 g/dL (31-37) Red Cell Distribution Width 14.2 % (11.5-14.5) Platelet Count 175 x10^3/uL (140-400) Sodium Level 144 mmol/L (136-145) Potassium Level 3.9 mmol/L (3.5-5.1) Chloride Level 111 mmol/L (98-107) Carbon Dioxide Level 25 mmol/L (21-32) Anion Gap 8 (6-14) Blood Urea Nitrogen 13 mg/dL (8-26) Creatinine 1.5 mg/dL (0.7-1.3) Estimated GFR (Cockcroft-Gault) 45.7 BUN/Creatinine Ratio 9 (6-20) Glucose Level 154 mg/dL (70-99) Calcium Level 8.1 mg/dL (8.5-10.1) Total Bilirubin 0.3 mg/dL (0.2-1.0) Aspartate Amino Transf (AST/SGOT) 14 U/L (15-37) Alanine Aminotransferase (ALT/SGPT) 24 U/L (16-63) Alkaline Phosphatase 66 U/L (46-116) Total Protein 6.4 g/dL (6.4-8.2) Albumin 2.6 g/dL (3.4-5.0) Albumin/Globulin Ratio 0.7 (1.0-1.7) Test 03/07/20 07:30 Glucose (Fingerstick) 149 mg/dL (70-99) Micro Microbiology 03/03/20 Blood Culture - Preliminary, Resulted NO GROWTH AFTER 2 DAYS Objective Assessment C. difficile colitis, 03/04 Mild patchy airspace disease in the right infrahilar region, atelectasis versus developing infectious process.COVID - neg 03/03 - CXR 03/06 better Fever - better Leukocytosis - better CAD Recent h/o UTI-Tx [id number] Cat scratch -abdomen area HTN Benign prostatic hypertrophy T2DM Plan Plan of Care continue po vancomycin through 03/17 Contact isolation for C. diff. Ok from ID standpoint to d/c or transfer KENISHA TRINIDAD MD Mar 07, 2020 08:54
[2020-03-07] MEDS: MIDODRINE 2.5 MG TABLET PO SCH ×2 (09:00→21:54)
[2020-03-07] MEDS: INSULIN LISPRO 300 UNITS/3 ML VIAL. SQ SCH ×3 (09:02→16:58)
[2020-03-07] MEDS: FAMOTIDINE 20 MG TABLET. PO SCH (09:03)
[2020-03-07] MEDS: DONEPEZIL HCL 10 MG TABLET. PO SCH (09:03)
[2020-03-07] MEDS: VANCOMYCIN 125 MG/2.5 ML ORAL SOLUTION. PO SCH ×4 (09:03→21:54)
[2020-03-07] MEDS: LACTOBACILLUS RHAMNOSUS GG 1 CAPSULE. PO SCH ×2 (09:03→21:55)
[2020-03-07] MEDS: SERTRALINE 50 MG TABLET. PO SCH (09:03)
[2020-03-07] MEDS: METOPROLOL TART IMMED RELEASE 25 MG TABLET. PO SCH ×2 (09:04→21:55)
[2020-03-07 11:00] VITALS: BP 124/76
--- NOTE | 2020-03-07 11:41 | PN ---
DATE: SUBJECTIVE: The patient is sitting on the edge of the bed comfortably in no apparent distress. He denied any complaint. He did have 2 bowel movements, not watery. His COVID-19 by PCR was negative. PHYSICAL EXAMINATION: GENERAL: When I saw him this morning, he looked well and was clearly in no apparent respiratory distress. No pallor, jaundice, cyanosis or thyromegaly. No jugular venous distention. No limb edema. VITAL SIGNS: His heart rate was 64, blood pressure was 120/80, his temperature was 97.6, respiratory rate was 18 and oxygen saturation was 98%. HEAD, EYES, EARS, NOSE AND THROAT: Normocephalic, atraumatic. NECK: Supple. HEART: Showed normal first and second heart sounds. No gallop or murmur. CHEST: Clear to auscultation. No crepitation or rhonchi. ABDOMEN: Distended, soft, nontender. No guarding or rigidity. No organomegaly. All hernial orifice intact. Bowel sounds normal. NEUROLOGIC: He was awake, alert, responding appropriately. All his cranial nerves were intact. He moves extremities without difficulty. His intake over the last 24 hours was 1400, output was 1500. LABORATORY DATA: As of this morning, his serum sodium was 144, potassium 3.9, chloride 111, bicarbonate 25, anion gap of 8, BUN 13, creatinine 1.5, estimated GFR was 45 mL per minute, glucose 154, calcium was 8.1. Total bilirubin, AST, ALT, alkaline phosphatase were normal. Total protein was 6.4, albumin 2.6. His white cell count was 4200, hemoglobin 11, hematocrit 33, MCV 95, and platelet count 175,000. ASSESSMENT AND PLAN: 1. Clostridium difficile colitis for which he is on oral vancomycin as well as Lactobacillus rhamnosus. Continued to have multiple bowel movements, although this morning, he has 2 are loose, but not watery. 2. He apparently was admitted for possible community-acquired pneumonia; however, his Rocephin and Zithromax were discontinued. 3. He was treated for sepsis at the [facility] and completed the course of antibiotic treatment 2 days prior to admission. 4. The patient has multiple other medical problems including: A. Coronary artery disease, status post bypass graft surgery. B. He has congestive heart failure. C. Hypertension. D. Hyperlipidemia. E. Obstructive sleep apnea. F. Benign prostatic hypertrophy. G. Hypothyroidism. H. Type 2 diabetes mellitus. Continue with isolation for Clostridium difficile. Continue with p.o. vancomycin. The patient continued to be weak and debilitated. I would consult Physical and Occupational Therapy and we will discuss with his daughter whether he can be discharged home or to a skilled facility for further rehabilitation. CARY CHIN MD DR: CHRIS/francois JOB#: [id number] / [id number]
--- NOTE | 2020-03-07 12:54 | EKG ---
[facility] [address] [place] [address] Test Date: 2020-03-03 Test Time: 18:45:58 Pat Name: ABNER VERAS Department: Room: [facility] Gender: M Pool Hall Inspector: : 1945 Requested By: IRVIN DOYLE Order Number: [id number] Reading MD: Measurements Intervals Hiram Rate: 97 P: 31 [place]: 262 QRS: 26 QRSD: 76 T: 65 QT: 330 QTc: 423 Interpretive Statements SINUS RHYTHM PROLONGED [place] INTERVAL QRS(T) CONTOUR ABNORMALITY CONSISTENT WITH INFERIOR INFARCT PROBABLY OLD T ABNORMALITY IN HIGH LATERAL LEADS ABNORMAL ECG RI6.01 No previous ECG available for comparison
--- NOTE | 2020-03-07 13:44 | NUR ---
SW following. Reviewed chart and spoke with RN. Coordinated care with Dr. Devine and therapy. SW awaiting PT/OT evaluation. MEGAN spoke with pt's dtr Rita who stated pt has been to [facility] in the past as well as had HH from [facility]. Patient Choice of Vendor form completed. Pt on oral medications and room air. Pt does live alone and his dtr will be out of town this coming weekend. Pt does have hired PD services per the dtr. MEGAN to continue following. Addendum: 03/07/20 at 1554 by GIANLUCA GUZMAN Spoke with Jose L from PT and reviewed assessment. Referral phoned and faxed to [facility], , (fax).
[2020-03-07 15:00] VITALS: BP 128/65
[2020-03-07 19:18] VITALS: BP 125/70
[2020-03-07] MEDS: ATORVASTATIN CALCIUM 40 MG TABLET. PO SCH (21:55)
[2020-03-07] MEDS: TAMSULOSIN 0.4 MG CAP.ER.24H. PO SCH (21:55)
[2020-03-07] MEDS: INSULIN GLARGINE SYRINGE. SQ SCH (22:00)
[2020-03-07 22:03] VITALS: BP 154/74
[2020-03-08 03:44] VITALS: BP 127/72
[2020-03-08 07:00] VITALS: BP 130/79
[2020-03-08] MEDS: IV NORMAL SALINE 1000ML BAG 1,000 ML IV SCH (07:05)
[2020-03-08] MEDS: LEVOTHYROXINE 75 MCG TABLET PO SCH (07:29)
[2020-03-08] MEDS: INSULIN LISPRO 300 UNITS/3 ML VIAL. SQ SCH (07:42)
[2020-03-08] MEDS ORDERED: VANC125C3 PO (08:54)
[2020-03-08] MEDS ORDERED: LACT1POW11 PO (08:54)
--- NOTE | 2020-03-08 08:56 | SNU/HH DC ---
DISCHARGE WITH HOME HEALTH DISCHARGE INFORMATION: Discharge Date: Mar 08, 2020 Final Diagnosis: Problems Medical Problems: (1) Exposure to COVID-19 virus Status: Acute (2) Pneumonia Status: Acute Condition on Discharge: Stable CODE STATUS: Code Status: Full HOME HEALTH: Face to Face: I certify this patient is under my care and that I, or a nurse practitioner or physician's statistical assistant working with me, had a face to face encounter that meets the physician face to face encounter requirements with this patient on 03/08/20 Shelter For: Admin/Educate Injections RN For Eval/Treatment: Yes Physical Therapy For: Evalulation/Treatment Occupational Therapy For: Evaluation/Treatment Pt Meets Homebound Status: Unsteady balance w/ amb, POST DISCHARGE ORDERS: Activity Instructions for Disc: Activity as tolerated Bathing Instructions: No Tub Bath until see DIET AFTER DISCHARGE: Cardiac CHECKS AFTER DISCHARGE: Checks after discharge: Check blood press - daily, Check blood sugar, ac/hs, Check your Temp as needed, Weigh Yourself Daily TREATMENT/EQUIPMENT ORDERS: Adaptive Equipment Issued: None CERTIFICATION STATEMENT: Certification Statement: Certification Statement: Based on the above finding, I certify that this patient is confined to the home and needs intermittent half-way care, physical therapy and/or speech therapy, or continues to need occupational therapy.~ This patient is under my care, and I have initiated the establishment of the plan of care.~ This patient will be followed by myself or a community physician who will periodically review the plan of care. Home Meds Active Scripts Lactobacillus Rhamnosus GG ([employer] [facility]) 1 Each Powd.pack, 1 PACKET PO DAILY for c diff for 10 Days, #10 PACKET 0 Refills Prov:CARY CHIN MD 03/08/20 Vancomycin Hcl (VANCOMYCIN HCL) 125 Mg Capsule, 1 CAP PO QID for c diff colitis for 10 Days, #40 CAP 0 Refills Prov:CARY CHIN MD 03/08/20 Reported Medications Levothyroxine Sodium (LEVOTHYROXINE SODIUM) 75 Mcg Tablet, 75 MCG PO DAILYAC for THYROID SUPPLEMENT, #30 TAB 0 Refills 03/03/20 Insulin Aspart (NOVOLOG FLEXPEN) 100 Unit/1 Ml Insuln.pen, 10 UNIT SQ TID for dm, SYR 03/03/20 Insulin Detemir (LEVEMIR) 100 Unit/1 Ml Vial, 15 UNIT SQ HS for dm, VIAL 03/03/20 Mirabegron (MYRBETRIQ) 50 Mg Tab.er.24h, 50 MG PO DAILY for over active bladder, TAB.SR 03/03/20 Famotidine (FAMOTIDINE) 20 Mg Tablet, 10 MG PO BID for gerd, TAB 03/03/20 Tamsulosin Hcl (TAMSULOSIN HCL) 0.4 Mg Cap.er.24h, 2 CAP PO HS for prostate, #30 CAP 5 Refills TAKE 2 CAPSULES BY MOUTH AT BEDTIME FOR PROSTATE. TAKE SAME TIME EACH DAY WITH FOOD 06/24/18 Sertraline Hcl (ZOLOFT) 100 Mg Tablet, 1 TAB PO DAILY, #30 TAB 5 Refills 06/24/18 Rosuvastatin Calcium (CRESTOR) 40 Mg Tablet, 1 TAB PO DAILY, #30 TAB 5 Refills 06/24/18 Midodrine Hcl (MIDODRINE HCL) 2.5 Mg Tablet, 2.5 MG PO BID, TAB 06/24/18 Metoprolol Tartrate (METOPROLOL TARTRATE) 50 Mg Tablet, 25 MG PO BID for FOR HYPERTENSION, #60 TAB 0 Refills 06/24/18 Donepezil Hcl (DONEPEZIL HCL) 10 Mg Tablet, 1 TAB PO DAILY, #90 TAB 1 Refill 06/24/18 Discontinued Reported Medications Sennosides/Docusate Sodium (SENOKOT-S TABLET) 1 Each Tablet, 1 EACH PO DAILY, TAB 06/24/18 Romney-3 Fatty Acids/Fish Oil (FISH OIL 1,000 MG CAPSULE) 1 Each Capsule, 1 EACH PO, CAP 06/24/18 Docusate Sodium (DOCUSATE SODIUM) 50 Mg/5 Ml Liquid, 50 MG PO, LIQUID 06/24/18 Aspirin (ASPIRIN EC) 81 Mg Tablet.dr, 1 TAB PO DAILY, #30 TAB 3 Refills 06/24/18 Ranolazine (RANEXA) 1,000 Mg Tab.er.12h, 1 TAB PO BID, #60 TAB 5 Refills 06/24/18 Ranitidine Hcl (RANITIDINE HCL) 150 Mg Tablet, 1 TAB PO BID, #180 TAB 3 Refills 06/24/18 Mirabegron (MYRBETRIQ) 25 Mg Tab.er.24h, 25 MG PO, TAB.SR 06/24/18 Metformin Hcl (METFORMIN HCL ER) 1,000 Mg Tab.er.24, 1000 MG PO DAILYWBKFT for ANTI-DIABETIC, TAB 0 Refills 06/24/18 Levothyroxine Sodium (LEVOTHYROXINE SODIUM) 25 Mcg Tablet, 0.05 MG PO DAILY, #30 TAB 5 Refills 06/24/18 Isosorbide Mononitrate (ISOSORBIDE MONONITRATE ER) 60 Mg Tab.er.24h, 120 MG PO DAILY for PREVENT CHEST PAIN, TAB.SA 06/24/18 Clopidogrel Bisulfate (CLOPIDOGREL) 75 Mg Tablet, 75 MG PO DAILY for TO PREVENT BLOOD CLOTS, #30 TAB 0 Refills 06/24/18 CARY CHIN MD Mar 08, 2020 08:56
[2020-03-08] MEDS: MIDODRINE 2.5 MG TABLET PO SCH (09:00)
[2020-03-08] MEDS: SERTRALINE 50 MG TABLET. PO SCH (09:22)
[2020-03-08] MEDS: LACTOBACILLUS RHAMNOSUS GG 1 CAPSULE. PO SCH (09:22)
[2020-03-08] MEDS: FAMOTIDINE 20 MG TABLET. PO SCH (09:22)
[2020-03-08] MEDS: DONEPEZIL HCL 10 MG TABLET. PO SCH (09:22)
[2020-03-08] MEDS: VANCOMYCIN 125 MG/2.5 ML ORAL SOLUTION. PO SCH (09:23)
[2020-03-08] MEDS: METOPROLOL TART IMMED RELEASE 25 MG TABLET. PO SCH (09:23)
--- NOTE | 2020-03-08 09:31 | DS ---
DATE OF DISCHARGE: 03/08/2020 HOSPITAL COURSE: The patient is a 74-year-old male patient who was admitted with recurrent bouts of loose bowel movement and fever. He was also found to have acute on chronic kidney injury. Stool was sent for C. diff and came back positive for C. diff toxins. We did start him on IV fluid as well as oral vancomycin. He was initially treated for possible community-acquired pneumonia; however, his Rocephin and Zithromax were discontinued as he has completed antibiotic therapy at the [facility] only 2 days prior to arrival to this hospital. He did well. His diarrhea has subsided gradually, he had only 1 bowel movements overnight. Denied any dizziness or lightheadedness. Denied any abdominal pain. Denied any chills, rigors, or fever. PHYSICAL EXAMINATION: GENERAL: When I saw him this morning, he looked well and was clearly in no apparent respiratory distress, slightly pale, but no jaundice, cyanosis or thyromegaly. No jugular venous distention. No lower limb edema. VITAL SIGNS: His heart rate was 78, blood pressure was 130/79, temperature was 97.8, respiratory rate was 18, and oxygen saturation was 98%. HEAD, EYES, EARS, NOSE, AND THROAT: Showed normocephalic, atraumatic. NECK: Supple. HEART: Showed normal first and second sounds. No gallop or murmur. CHEST: Clear to auscultation. No crepitation or rhonchi. ABDOMEN: Distended, soft, nontender. NEUROLOGIC: He is awake, alert, responding appropriately. All cranial nerves are intact. He moves extremities without difficulty. He ambulates without assistance or assistive devices. His intake was 1400, output was 1500. LABORATORY DATA: This morning showed a white cell count of 4200, hemoglobin 11, hematocrit 33, MCV 95, and platelet count 275,000. His chemistry showed a serum sodium of 144, potassium 3.9, chloride 111, bicarbonate 25, anion gap of 8, BUN 13, creatinine 1.5. Estimated GFR was 46 mL per minute, his glucose 154, calcium was 8.1. Total bilirubin, AST, ALT, and alkaline phosphatase were normal. Total protein was 6.4, albumin was 2.6. His COVID-19 by PCR was not detected. His influenza A and B were negative. DISCHARGE MEDICATIONS: He was discharged home to continue on vancomycin 125 mg 4 times a day for 10 more days, lactobacillus rhamnosus 1 capsule twice a day, Aricept 10 mg once a day, famotidine 20 mg twice a day, NovoLog insulin 10 units before meals and detemir insulin 50 units at bedtime, levothyroxine 75 mcg once a day, metoprolol tartrate 25 mg p.o. b.i.d., midodrine 2.5 mg twice a day, Myrbetriq 50 mg daily, Crestor 40 mg daily, sertraline for Zoloft 100 mg once a day, and tamsulosin 0.8 mg at bedtime. FINAL DISCHARGE DIAGNOSES: 1. Clostridium difficile colitis for which he is now on vancomycin orally and is responding very well. He had only 1 bowel movement yesterday. 2. Zgkol-fy-zovheto kidney injury, resolved. His creatinine is down from 2 to 1.5. 3. The patient has multiple other medical problems including: A. Coronary artery disease, status post bypass graft surgery. B. Congestive heart failure. C. Hypertension. D. Hyperlipidemia. E. Obstructive sleep apnea. F. Benign prostatic hypertrophy. G. Hypothyroidism. H. Type 2 diabetes mellitus. The patient will be discharged home with home health to continue with oral vancomycin. CARY CHIN MD DR: CHRIS/francois JOB#: [id number] / [id number]
[2020-03-08 10:50] VITALS: BP 108/58
--- NOTE | 2020-03-08 10:56 | NUR ---
Pt left unit at approx 1055 by wheelchair via private vehicle. Pt's IV removed with no complications, pressure applied. VSS. Discharge instructions and handouts discussed with pt, additional questions addressed.
--- NOTE | 2020-03-08 11:47 | NUR ---
SW following. Reviewed chart. Spoke with RN and Dr. Devine. Pt to discharge home today with [facility]. [facility] called SW this morning to say referral was received. Discharge orders to be faxed. SW to continue following.
== END 2020-03-08 11:00 | disposition home health service (06) | DRG 371 ==
LOC: ER 18:35 → 6 SOUTH 20:20
PROVIDERS: ADMIT Internal Medicine; ATTEND Internal Medicine
DX: A04.72 Enterocolitis due to Clostridium difficile, not specified as recurrent (principal); J18.9 Pneumonia, unspecified organism; N17.0 Acute kidney failure with tubular necrosis; I42.9 Cardiomyopathy, unspecified; J98.11 Atelectasis; I13.0 Hypertensive heart and chronic kidney disease with heart failure and stage 1 through stage 4 chronic kidney disease, or unspecified chronic kidney disease; M19.90 Unspecified osteoarthritis, unspecified site; K21.9 Gastro-esophageal reflux disease without esophagitis; I25.10 Atherosclerotic heart disease of native coronary artery without angina pectoris; F32.9 Major depressive disorder, single episode, unspecified; E03.9 Hypothyroidism, unspecified; E78.5 Hyperlipidemia, unspecified; G47.33 Obstructive sleep apnea (adult) (pediatric); F03.90 Unspecified dementia, unspecified severity, without behavioral disturbance, psychotic disturbance, mood disturbance, and anxiety; Z60.2 Problems related to living alone; E11.42 Type 2 diabetes mellitus with diabetic polyneuropathy; I50.9 Heart failure, unspecified; N40.0 Benign prostatic hyperplasia without lower urinary tract symptoms; B96.89 Other specified bacterial agents as the cause of diseases classified elsewhere; N18.9 Chronic kidney disease, unspecified; E11.22 Type 2 diabetes mellitus with diabetic chronic kidney disease; Z20.828 Contact with and (suspected) exposure to other viral communicable diseases; Z96.641 Presence of right artificial hip joint; W55.03XA Scratched by cat, initial encounter; Y93.89 Activity, other specified; Y92.89 Other specified places as the place of occurrence of the external cause; Y99.8 Other external cause status; Z98.49 Cataract extraction status, unspecified eye; Z78.9 Other specified health status; Z87.440 Personal history of urinary (tract) infections; Z90.49 Acquired absence of other specified parts of digestive tract; Z88.8 Allergy status to other drugs, medicaments and biological substances; Z91.041 Radiographic dye allergy status; I25.2 Old myocardial infarction; Z95.1 Presence of aortocoronary bypass graft; Z95.5 Presence of coronary angioplasty implant and graft; Z86.73 Personal history of transient ischemic attack (TIA), and cerebral infarction without residual deficits; Z82.49 Family history of ischemic heart disease and other diseases of the circulatory system
CPT/HCPCS: 36415; 71045; 80053; 80061; 82962; 83605; 83880; 84145; 84484; 85007; 85025; 85027; 87040; 87493; 87804; 93005; 96374; J0456; J0696; J1815; J7030; J7050; 99285-25; G0378; U0003-CS

== ENCOUNTER 2020-10-25 23:58 | Observation (INO) | payer MEDICARE, OTHER ==
[~2020-10-25] VITALS: Ht 167.6 cm; Wt 89.1 kg
[~2020-10-25 23:58] MED LIST changes: +AMLO-186 PO; +CHOL500021 PO; +DOCU50CA9 PO; +FAMO20TA5 PO; +GLIP5TAB10 PO; +INSU100I17 SQ; +INSU100V13 SQ; +ISOS30TA68 PO; -ISOS60TA2 PO; +ISOS60TA55 PO; +LACT1POW11 PO; +LEVO100T5 PO; +LEVO75TA5 PO; +MELA1TAB44 PO; +METO100T7 PO; +MIRA50TA PO; +MULT-114 PO; +NITR0.4T22 SL; +OMEG1CAP68 PO; +PSYL3.4P PO; +VANC125C3 PO; +VIT1TABL32 PO
[2020-10-26] VITALS (22 sets, daily range): BP systolic 100–135; BP diastolic 55–77
[2020-10-26 00:21] LABS: BASO # 0.1 x10^3/uL (0.0-0.2); BASO % 1 % (0-3); EOS # 0.3 x10^3/uL (0.0-0.7); EOS % 5 % (0-3); HEMATOCRIT 34.9 % (39.0-53.0); HEMOGLOBIN 11.7 g/dL (13.0-17.5); LYMPH # 1.3 x10^3/uL (1.0-4.8); LYMPH % 24 % (24-48); MEAN CORPUSCULAR HEMOGLOBIN 33 pg (25-35); MEAN CORPUSCULAR HGB CONC 34 g/dL (31-37); MEAN CORPUSCULAR VOLUME 98 fL (79-100); MONO # 0.6 x10^3/uL (0.0-1.1); MONO % 11 % (0-9); NEUT # 3.3 x10^3/uL (1.8-7.7); NEUT % 59 % (31-73); PLATELET COUNT 228 x10^3/uL (140-400); RED BLOOD COUNT 3.57 x10^6/uL (4.30-5.70); RED CELL DISTRIBUTION WIDTH 14.6 % (11.5-14.5); WHITE BLOOD COUNT 5.5 x10^3/uL (4.0-11.0)
--- NOTE | 2020-10-26 00:22 | PHYS DOC ---
Past Medical History Past Medical History: Dementia, Diabetes-Type II, GERD, Hypothyroid Additional Past Medical Histor: sepsis, 2019 Past Surgical History: Appendectomy, Hip Replacement Additional Past Surgical Histo: heart cath with 14 stents, "fatty tumor removed on neck" Smoking Status: Never Smoker Alcohol Use: None General Adult EDM: Chief Complaint: CHEST PAIN-CARDIAC NATURE HPI: HPI: Patient is a 74 year old male with a PMH of CABG and 16 stents who presents with chest pain from EMS. He was recently admitted for chest pain and ca theterization was performed that showed blockages in his RCA. He states that this chest pain began at 10:35 PM waking him up from sleeping and feels the exact same as before. Is located substernally, radiated into his neck and right arm, is a sharp pressure, and is currently a 5/10 pain. He took 2 SL nitro at home and was given 3 SL nitro by EMS as well as 325 of ASA. He is also short of breath, dizzy, and hot. He denies syncope, nausea, or vomiting. He states he has been taking all his medication he was given after his stents as prescribed. Review of Systems: Review of Systems: Constitutional: Denies fever or chills. [] Eyes: Denies change in visual acuity. [] HENT: Denies nasal congestion or sore throat. [] Respiratory: Denies cough, Positive for shortness of breath. [] Cardiovascular: Positive chest pain, negative edema. [] GI: Denies abdominal pain, nausea, vomiting, bloody stools or diarrhea. [] : Denies dysuria. [] Musculoskeletal: Denies back pain or joint pain. [] Integument: Denies rash. [] Neurologic: Denies headache, focal weakness or sensory changes. [] Endocrine: Denies polyuria or polydipsia. [] Lymphatic: Denies swollen glands. [] Psychiatric: Denies depression or anxiety. [] Heart Score: HEART Score for Chest Pain: HEART Score for Chest Pain Response (Comments) Value History Highly Suspicious 2 ECG Nonspecific Repolarizatio 1 Age > 65 2 Risk Factors >3 Risk Factors or Hx CAD 2 Troponin < Normal Limit 0 Total 7 Risk Factors: Risk Factors: DM, Current or recent (<one month) smoker, HTN, HLP, family history of CAD, obesity. Risk Scores: Score 0 - 3: 2.5% MACE over next 6 weeks - Discharge Home Score 4 - 6: 20.3% MACE over next 6 weeks - Admit for Clinical Observation Score 7 - 10: 72.7% MACE over next 6 weeks - Early Invasive Strategies Current Medications: Current Medications Medications (Trade) Dose Ordered Sig/[facility] Start Time Stop Time Status Last Admin Dose Admin Morphine Sulfate (Morphine Sulfate) 4 mg 1X ONCE 10/26/20 00:30 10/26/20 00:31 Allergies: Allergies: Allergies Coded Allergies Type Severity Reaction Last Updated Verified Iodinated Contrast Media Allergy Severe 03/03/20 Yes niacin Allergy Intermediate 03/03/20 Yes Physical Exam: PE: Constitutional: Well developed, well nourished, no acute distress, non-toxic appearance. [] HENT: Normocephalic, atraumatic, bilateral external ears normal, oropharynx moist, no oral exudates, nose normal. [] Eyes: PERRLA, EOMI, conjunctiva normal, no discharge. [] Neck: Normal range of motion, no tenderness, supple, no stridor. [] Cardiovascular:Heart rate regular rhythm, no murmur [] Lungs & Thorax: Bilateral breath sounds clear to auscultation [] Abdomen: Bowel sounds normal, soft, no tenderness, no masses, no pulsatile masses. [] Skin: Warm, dry, no erythema, no rash. [] Back: No tenderness, no CVA tenderness. [] Extremities: No tenderness, no cyanosis, no clubbing, ROM intact, no edema. [] Neurologic: Alert and oriented X 3, normal motor function, normal sensory fun ction, no focal deficits noted. [] Psychologic: Affect normal, judgement normal, mood normal. [] EKG: EKG: EKG performed at 1206 sinus rhythm rate of [address] elevation no acute IA T wave inversion aVL lead III, aVL, 1 millimeter [] Radiology/Procedures: Radiology/Procedures: [] Impression: Findings: Status post median sternotomy. Unchanged prominence of the cardiomediastinal silhouette. No confluent airspace infiltrate, pleural effusion or pneumothorax. Overall slightly improved aeration of the lungs from the recent comparison. Impression: No acute radiographic abnormality of the chest. Course & Med Decision Making: Course & Med Decision Making Pertinent Labs and Imaging studies reviewed. (See chart for details) [] Patient was evaluated for chief complaint. Work-up consisted of laboratory analysis radiologic imaging and EKG. Results reviewed and discussed with patient. Patient's EKG no ST elevation consistent with an IA. Patient's initial troponin within normal limits. Patient was treated with aspirin prior to arrival. Patient was started on a nitro drip. He received morphine for pain. Pain improved post treatment. Patient was admitted to his primary care physician with cardiology consult. Dragon Disclaimer: Dragon Disclaimer: This electronic medical record was generated, in whole or in part, using a voice recognition dictation system. Departure Departure Impression: Primary Impression: Chest pain Disposition: ADMITTED INPT THIS HOSP Admitting Physician: Madi. Magallanes Condition: STABLE Referrals: CARY CHIN MD (PCP) SHAKA GUTIÉRREZ DO Oct 26, 2020 00:22
[2020-10-26 00:29] LABS: CALCIUM 8.6 mg/dL (8.5-10.1); CREATININE 1.6 mg/dL (0.7-1.3); GFR 42.5; POTASSIUM 4.4 mmol/L (3.5-5.1)
[2020-10-26] MEDS ORDERED: MORPHINE SULFATE 4 MG/ML VIAL. IV ONE (00:30)
[2020-10-26] MEDS ORDERED: MORPHINE SULFATE 4 MG/ML VIAL. IV PRN (00:30)
[2020-10-26] MEDS ORDERED: NITROGLYCERIN PREMIX 250 ML IV ONE (00:30)
[2020-10-26] MEDS ORDERED: ONDANSETRON PF 4 MG/2 ML VIAL. IV PRN (00:30)
[2020-10-26] MEDS ORDERED: NITROGLYCERIN SUBLINGUAL 0.4 MG BOTTLE OF 25. SL PRN (00:30)
[2020-10-26 00:35] LABS: ALBUMIN 3.2 g/dL (3.4-5.0); TOTAL BILIRUBIN 0.2 mg/dL (0.2-1.0); TOTAL PROTEIN 6.4 g/dL (6.4-8.2)
[2020-10-26] MEDS ORDERED: METO50TA6 PO (02:23)
--- NOTE | 2020-10-26 02:26 | RAD ---
Study: XR CHEST 1V Indication: Chest pain. Comparison: 10/12/2020 Findings: Status post median sternotomy. Unchanged prominence of the cardiomediastinal silhouette. No confluent airspace infiltrate, pleural effusion or pneumothorax. Overall slightly improved aeratio n of the lungs from the recent comparison. Impression: No acute radiographic abnormality of the chest. Electronically signed by: OR SERRA MD (10/26/2020 2:24 AM) [facility]
--- NOTE | 2020-10-26 04:21 | EKG ---
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
--- NOTE | 2020-10-26 04:26 | NUR ---
PT ADMITTED TO ROOM 204 WITH CHEST PAIN, STANDBY ASSIST TO BED W/O DIFFICULTY. PT CURRENTLY ON NITRO GTT TOLERATING WELL. PT VERBALIZED HIS CHEST PAIN IS NOW 3 OUT OF 10. PT ORIENTED TO UNIT, STAFF AND POC ADMISSION COMPLETE , SEE CHARTING CALL LIGHT IN PLACE WILL CONT TO MONITOR PT STATUS AND SAFETY. PMRN
[2020-10-26] MEDS ORDERED: INSU100V13 SQ (04:55)
[2020-10-26] MEDS ORDERED: INSU100V6 SQ (04:55)
[2020-10-26] MEDS ORDERED: NITROGLYCERIN PREMIX 250 ML IV PRN (10:30)
--- NOTE | 2020-10-26 11:29 | HP ---
ADMIT DATE: 10/26/2020 HISTORY OF PRESENT ILLNESS: The patient is a 74-year-old male patient who was brought yesterday to the Emergency Room with a complaint of chest pain that began around 10:35 p.m. and waking him from sleep phase, exactly same as before. It is located substernally, radiating into his neck and right arm, it is sharp pressure. On arrival, it was 5/10 in severity. He took 2 sublingual nitroglycerin at home, was given 3 sublingual nitroglycerin by [facility], as well as 325 mg of aspirin. He is also short of breath, dizzy and hot. He denied any syncope, nausea or vomiting. He states that he has been taking all his medications as prescribed, apparently was admitted recently and underwent cardiac catheterization, which showed that the patient has blockage of his right coronary artery and there was a plan for him to be transferred to [facility] for PCI with laser atherectomy and ostial/balloon angioplasty involving the right coronary artery. PAST MEDICAL HISTORY: Significant for coronary artery disease, congestive heart failure, hypertension, myocardial infarction, hyperlipidemia, obstructive sleep apnea, cerebrovascular accident, peripheral neuropathy, dementia, gastroesophageal reflux disease, depression, osteoarthritis, benign prostatic hypertrophy and urinary incontinence. He is also known to have type 2 diabetes mellitus and hypothyroidism. PAST SURGICAL HISTORY: Significant for appendectomy, coronary artery bypass graft surgery and right total hip arthroplasty as well as multiple stent deployment. 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 FAMILY HISTORY: Positive for coronary artery disease. SOCIAL HISTORY: He lives alone with his cat. Has a son and a daughter. His daughter is his DPOA and she keeps an eye on him. He does not smoke, drink alcohol or use any recreational drugs. REVIEW OF SYSTEMS: As per history of present illness. ALLERGIES: HE IS ALLERGIC TO IODINATED CONTRAST MEDIA AND NIACIN. MEDICATIONS: He is currently on following medications: He is on Aricept 5 mg daily; tamsulosin 0.4 mg, he takes two tablets at bedtime; Plavix 75 mg once a day, Crestor 40 mg daily; omega-3 fatty acids two capsules daily; isosorbide mononitrate 30 mg, he takes three tablets daily; nitroglycerin 0.4 mg sublingually every 5 minutes as needed; metoprolol tartrate 50 mg twice a day; amlodipine 2.5 mg daily, aspirin 81 mg once a day, sertraline 100 mg daily, Colace 100 mg twice a day, psyllium husk 3.4 grams at bedtime, he is on detemir insulin 44 units at bedtime and Humalog insulin 18 units before meals, glipizide 5 mg twice a day, levothyroxine sodium 100 mg once a day, Myrbetriq 50 mg daily; cholecalciferol vitamin D ____ 2000 units once daily; multivitamin with mineral one tablet once a day; melatonin 1 mg at bedtime. PHYSICAL EXAMINATION: GENERAL: On arrival to the Emergency Room, he looked well and was clearly in no apparent respiratory distress. No pallor, jaundice, cyanosis or thyromegaly. No jugular venous distension. No limb edema. VITAL SIGNS: His heart rate was 95, blood pressure was 132/67, his temperature was 98.7, respiratory rate was 30 and oxygen saturation was 99%. HEAD, EYES, EARS, NOSE AND THROAT: Showed normocephalic, atraumatic. NECK: Supple. HEART: Showed normal first and second heart sounds. No gallop, rub or murmur. CHEST: Clear to auscultation. No crepitation or rhonchi. ABDOMEN: Distended, soft, nontender. NEUROLOGIC: He was grossly intact. LABORATORY DATA: His lab work on arrival showed a white cell count 5500, hemoglobin 12, hematocrit 35, MCV 98 and platelet count 228,000 with normal manual differential. His chemistry on arrival showed a serum sodium 139, potassium 4.4, chloride 106, bicarbonate 25, anion gap of 8, BUN 23, creatinine 1.6, estimated GFR was 43 mL per minute. His glucose was 315, calcium was 8.6. Total bilirubin and alkaline phosphatase is normal. AST, ALT slightly elevated. His first troponin was less than 0.017. Total protein was 6.4 and albumin was 3.2. His prothrombin time, INR and aPTT are all normal. 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 We will do two more sets of cardiac enzyme, consult the Cardiology team. Meanwhile, to continue with all his medications. CARY CHIN MD DR: CHRIS/francois JOB#: [id number] / [id number]
[2020-10-26] MEDS ORDERED: amLODIPine BESYLATE 5 MG TABLET PO SCH (11:30)
--- NOTE | 2020-10-26 11:44 | PDOC ---
CARDIO Progress Notes Date and Time Date of Service 10/26/2020 Time of Evaluation 1100 Subjective Subjective: No shortness of breath, No Palpitations, No Dizziness, Other (chest rightness 10/11) Vitals Vitals Vital Signs Date Time Temp Pulse Resp B/P (MAP) Pulse Ox O2 Delivery O2 Flow Rate FiO2 10/26/20 08:00 Room Air 10/26/20 07:00 97.4 70 20 108/63 (78) 99 97.4 Weight Weight [ ] Input and Output Intake and Output Intake and Output 10/26/20 07:00 Intake Total 0 ml Output Total 400 ml Balance -400 ml Intake Oral 0 ml Output Urine Total 400 ml Laboratory Labs Laboratory Tests Test 10/26/20 00:10 10/26/20 04:40 10/26/20 04:45 10/26/20 07:22 White Blood Count 5.5 x10^3/uL (4.0-11.0) Red Blood Count 3.57 x10^6/uL (4.30-5.70) Hemoglobin 11.7 g/dL (13.0-17.5) Hematocrit 34.9 % (39.0-53.0) Mean Corpuscular Volume 98 fL (79-100) Mean Corpuscular Hemoglobin 33 pg (25-35) Mean Corpuscular Hemoglobin Concent 34 g/dL (31-37) Red Cell Distribution Width 14.6 % (11.5-14.5) Platelet Count 228 x10^3/uL (140-400) Neutrophils (%) (Auto) 59 % (31-73) Lymphocytes (%) (Auto) 24 % (24-48) Monocytes (%) (Auto) 11 % (0-9) Eosinophils (%) (Auto) 5 % (0-3) Basophils (%) (Auto) 1 % (0-3) Neutrophils # (Auto) 3.3 x10^3/uL (1.8-7.7) Lymphocytes # (Auto) 1.3 x10^3/uL (1.0-4.8) Monocytes # (Auto) 0.6 x10^3/uL (0.0-1.1) Eosinophils # (Auto) 0.3 x10^3/uL (0.0-0.7) Basophils # (Auto) 0.1 x10^3/uL (0.0-0.2) Prothrombin Time 13.0 SEC (11.7-14.0) Prothromb Time International Ratio 1.0 (0.8-1.1) Activated Partial Thromboplast Time 37 SEC (24-38) Sodium Level 139 mmol/L (136-145) Potassium Level 4.4 mmol/L (3.5-5.1) Chloride Level 106 mmol/L (98-107) Carbon Dioxide Level 25 mmol/L (21-32) Anion Gap 8 (6-14) Blood Urea Nitrogen 23 mg/dL (8-26) Creatinine 1.6 mg/dL (0.7-1.3) Estimated GFR (Cockcroft-Gault) 42.5 BUN/Creatinine Ratio 14 (6-20) Glucose Level 315 mg/dL (70-99) Calcium Level 8.6 mg/dL (8.5-10.1) Total Bilirubin 0.2 mg/dL (0.2-1.0) Aspartate Amino Transf (AST/SGOT) 53 U/L (15-37) Alanine Aminotransferase (ALT/SGPT) 101 U/L (16-63) Alkaline Phosphatase 110 U/L (46-116) Troponin I Quantitative < 0.017 ng/mL (0.000-0.055) 0.026 ng/mL (0.000-0.055) DD-Gqf-L-Type Natriuretic Peptide 1507 pg/mL (0-124) Total Protein 6.4 g/dL (6.4-8.2) Albumin 3.2 g/dL (3.4-5.0) Albumin/Globulin Ratio 1.0 (1.0-1.7) Magnesium Level 2.2 mg/dL (1.8-2.4) Glucose (Fingerstick) 174 mg/dL (70-99) Test 10/26/20 07:42 Troponin I Quantitative < 0.017 ng/mL (0.000-0.055) Physical Exam HEENT: Neck Supple W Full Motion Chest: Symmetric LUNGS: Clear to Auscultation Heart: S1S2, RRR (SR with intermittent PVCs) Abdomen: Soft N/T Extremities: No Edema, No Calf Tenderness Neurology: alert, oriented, follow commands Assessment Assessment HPI: This is a pleasant 74 yo male admitted for complains of chest pain. This is the same symptoms as when he was admitted over a week ago. Complains of chest tightness prolonged last night and it woke him up. He was also a little nauseated and had some SOA. He took 2 NTG and ASA. He is known for past CABG and had a recent PTCA to mid RCA and LAQUITA to proximal RCA on 09/19/2020. He had an NSTEMI and [facility] 10/16/2020 revealed occluded RCA. It was then deemed that he needed consideration of repeat high risk PCI with laser atherectomy and ostial flash balloon angioplasty involving the RCA and [place] cardiology was notified at that time and was no longer having chest discomfort with introduction of multiple antianginals and follow up was established for him to see Dr. Cheng possibly this week to set up further plans for intervention. He was discharged to home on 10/20/2020. This was significantly discussed with his daughter as pt does have some mild dementia. Presently he still has some mild chest tightness but his EKG is unchanged and troponins are normal. No SOA and feels much better this morning. 1. Chest pain: due to ischemia 2. CAD: Past CABG. CALHOUN to LAD, SVG to OM1 with known BEHAVIORAL HEALTH ASSISTANT to LCx. SVG to D1. Recent PTCA to mid RCA and LAQUITA to proximal RCA on 09/19/2020. He had and NSTEMI and [facility] 10/16/2020 revealed occluded RCA 3. HTN: controlled 4. HLP; statin 5. DM2: per PCP 6. Mild dementia: on aricept 7. Suspect CKD 3 Recommendations Continue NTG drip, restart antianginals except imdur Secondary prevention including DAPT with ASA/Plavix Social service to notify [place] for possible [facility] transfer for consideration of repeat high risk PCI with laser atherectomy and ostial flash balloon angioplasty involving the RCA Justicifation of Admission Dx: Justifications for Admission: Justification of Admission Dx: Yes [place] [employer] Oct 26, 2020 11:44
[2020-10-26] MEDS ORDERED: MULTIVITAMIN I-VITE TABLET. PO SCH (12:00)
[2020-10-26] MEDS ORDERED: ATORVASTATIN CALCIUM 40 MG TABLET. PO SCH (12:00)
[2020-10-26] MEDS ORDERED: SERTRALINE 50 MG TABLET. PO SCH (12:00)
[2020-10-26] MEDS ORDERED: ASPIRIN ENTERIC COATED 81 MG TABLET.DR. PO SCH (12:00)
[2020-10-26] MEDS ORDERED: ISOSORBIDE MONONITRATE ER 30 MG TAB.ER.24H PO SCH (12:00)
[2020-10-26] MEDS ORDERED: CLOPIDOGREL BISULFATE 75 MG TABLET PO SCH (12:00)
[2020-10-26] MEDS ORDERED: METOPROLOL TART IMMED RELEASE 50 MG TABLET. PO SCH (12:00)
[2020-10-26] MEDS: INSULIN LISPRO 300 UNITS/3 ML VIAL. SQ SCH ×2 (12:48→18:15)
--- NOTE | 2020-10-26 14:00 | NUR ---
SS following for discharge planning. SS reviewed pt chart and discussed with pt RN. Pt is from home and is currently on room air. Per Cardiology pt needing "[facility] transfer for consideration of high risk PCI with laser atherectomy and ostial flash balloon involving the RCA." SS contacted transfer team, , and made request for transfer. SS spoke with Kenney in the transfer team, . SS faxed clinical to [phone] as requested. Images clouded to . Packet and transfer form placed on chart. SS will await acceptance decision and will proceed accordingly.
[2020-10-26] MEDS ORDERED: glipiZIDE 5 MG TABLET PO SCH (16:30)
--- NOTE | 2020-10-26 16:41 | NUR ---
SS following up with discharge planning. Pt accepted at . Accepting physician, Dr. Cid. to call floor RN with bed assignment and report number when available. Packet, ambulance form, and transfer form on the chart.
--- NOTE | 2020-10-26 19:31 | NUR ---
Discharge Note: FLO VERAS Transfer instructions and medications reviewed with and a copy given. All questions have been answered and understanding verbalized. Discontinued lines and drains: right hand 18 guage with Nitroglycerin running Patient discharged to via EMS in stable condition
[2020-10-26] MEDS ORDERED: NON FORMULARY ITEM (Melatonin 1 TAB) PO SCH (21:00)
[2020-10-26] MEDS ORDERED: TAMSULOSIN 0.4 MG CAP.ER.24H. PO SCH (21:00)
[2020-10-26] MEDS ORDERED: DOCUSATE SODIUM 100 MG CAPSULE. PO SCH (21:00)
[2020-10-26] MEDS ORDERED: PSYLLIUM HUSK (SUGAR FREE) 1 PKT PACKET PO SCH (21:00)
[2020-10-26] MEDS ORDERED: INSULIN GLARGINE SYRINGE. SQ SCH (21:00)
[2020-10-27] MEDS ORDERED: LEVOTHYROXINE 100 MCG TABLET PO SCH (07:00)
[2020-10-27] MEDS ORDERED: OMEGA-3 FATTY ACIDS/FISH OIL 1,000 MG CAPSULE. PO SCH (09:00)
[2020-10-27] MEDS ORDERED: MULTIVITAMIN with MINERAL TABLET. PO SCH (09:00)
[2020-10-27] MEDS ORDERED: CHOLECALCIFEROL (VITAMIN D3) 1,000 UNIT TABLET PO SCH (09:00)
[2020-10-27] MEDS ORDERED: NON FORMULARY ITEM (Mirabegron (Myrbetriq) 50 MG) PO SCH (09:00)
[2020-10-27] MEDS ORDERED: DONEPEZIL HCL 10 MG TABLET. PO SCH (21:00)
== END 2020-10-26 19:36 | disposition short-term general hospital (02) ==
LOC: ER 23:58 → 2 NORTH 10-26 00:27
PROVIDERS: ADMIT Internal Medicine; ATTEND Internal Medicine
DX: I13.0 Hypertensive heart and chronic kidney disease with heart failure and stage 1 through stage 4 chronic kidney disease, or unspecified chronic kidney disease (principal); I50.9 Heart failure, unspecified; N18.9 Chronic kidney disease, unspecified; R07.89 Other chest pain; E11.22 Type 2 diabetes mellitus with diabetic chronic kidney disease; I25.10 Atherosclerotic heart disease of native coronary artery without angina pectoris; I21.4 Non-ST elevation (NSTEMI) myocardial infarction; I25.2 Old myocardial infarction; E78.5 Hyperlipidemia, unspecified; N40.0 Benign prostatic hyperplasia without lower urinary tract symptoms; E03.9 Hypothyroidism, unspecified; G47.33 Obstructive sleep apnea (adult) (pediatric); K21.9 Gastro-esophageal reflux disease without esophagitis; F03.90 Unspecified dementia, unspecified severity, without behavioral disturbance, psychotic disturbance, mood disturbance, and anxiety; Z86.73 Personal history of transient ischemic attack (TIA), and cerebral infarction without residual deficits; Z90.49 Acquired absence of other specified parts of digestive tract; Z96.641 Presence of right artificial hip joint; Z98.61 Coronary angioplasty status; Z95.1 Presence of aortocoronary bypass graft; Z98.890 Other specified postprocedural states; Z79.899 Other long term (current) drug therapy
CPT/HCPCS: 36415; 71045; 80053; 82962; 83735; 83880; 84484; 85025; 85610; 85730; 93005; 96365; 96366; 96372; 96375; 99285; G0378; J1815; J2270; J3490; 96374; G0379